=== PATIENT | male | born 1960 | race Caucasian/White ===

== ENCOUNTER 2019-10-01 16:21 | Emergency (ER) | payer OTHER ==
[~2019-10-01] VITALS: Ht 172.7 cm; Wt 77.3 kg
[~2019-10-01 16:21] MED LIST: ATOR10TA84 PO; LEVE750T4 PO
[2019-10-01] MEDS ORDERED: LEVE500T53 PO (16:34)
[2019-10-01] MEDS ORDERED: CITA10TA68 PO (16:34)
[2019-10-01] MEDS ORDERED: MEMA10TA11 PO (16:34)
[2019-10-01] MEDS ORDERED: ASPI-1182 PO (16:34)
[2019-10-01] MEDS ORDERED: DONE10TA8 PO (16:34)
[2019-10-01] MEDS ORDERED: RANI150T7 PO (16:34)
[2019-10-01] MEDS ORDERED: ATOR40TA28 PO (16:34)
[2019-10-01] MEDS ORDERED: BUSP15 PO (16:34)
[2019-10-01] MEDS ORDERED: PREG75 PO (16:34)
[2019-10-01] MEDS ORDERED: LACO100 PO (16:34)
[2019-10-01 18:09] LABS: BASOPHILS % (AUTO) 0.4 % (0.0-2.0); EOSINOPHILS % (AUTO) 2.7 % (1.0-6.0); HEMATOCRIT 42.6 % (41-53); HEMOGLOBIN 14.4 g/dL (13.5-17.5); LYMPHOCYTES # (AUTO) 1.4 K/uL (1.0-4.8); LYMPHOCYTES % (AUTO) 22.4 % (22.0-44.0); MEAN CORPUSCULAR HEMOGLOBIN 30.7 pg (26.0-34.0); MEAN CORPUSCULAR HGB CONC 33.8 G/dL (31.0-37.0); MEAN CORPUSCULAR VOLUME 91 fL (80-100); MONOCYTES # (AUTO) 0.4 K/uL (0.1-1.0); MONOCYTES % (AUTO) 5.9 % (2.0-9.0); NEUTROPHILS # (AUTO) 4.4 K/uL (1.8-7.7); NEUTROPHILS % (AUTO) 68.6 % (40.0-70.0); PLATELET COUNT (AUTO) 194 K/uL (150-450); RED BLOOD CELL COUNT(AUTO) 4.69 MIL/uL (4.50-5.90); RED CELL DISTRIBUTION WIDTH 14.1 % (11.5-14.5)
[2019-10-01 18:13] LABS: ANION GAP 10 mmol/L (8-16); CALCIUM, TOTAL 8.8 mg/dL (8.8-10.5); CARBON DIOXIDE 30 mmol/L (22-29); CHLORIDE 104 mmol/L (98-107); CREATININE 1.05 mg/dL (0.60-1.30); GLOMERULAR FILTR. RATE CALC > 60 mL/min (>60); GLUCOSE,RANDOM 114 mg/dL (70-110); POTASSIUM 3.7 mmol/L (3.5-5.1); SODIUM SERUM 144 mmol/L (136-145); UREA NITROGEN, BLOOD 18 mg/dL (7-18)
[2019-10-01 18:19] LABS: ALANINE AMINOTRANSFERASE 35 U/L (12-78); ALBUMIN 3.7 g/dL (3.4-5.0); ALKALINE PHOSPHATASE 66 U/L (46-116); ASPARTATE AMINOTRANSFERASE 23 U/L (15-37); BILIRUBIN,TOTAL 0.4 mg/dL (0.1-1.0); TOTAL PROTEIN, SERUM 6.9 g/dL (6.4-8.2)
[2019-10-01] MEDS ORDERED: SODIUM CHLORIDE 0.9% 100 ML ONE (18:32)
[2019-10-01] MEDS ORDERED: IOVERSOL 320 MG/ML 100 ML VIAL ONE (18:32)
[2019-10-01 19:17] VITALS: BP 135/59
== END 2019-10-01 19:43 | disposition home or self-care (01) ==
LOC: EMS 16:22
DX: K62.89 Other specified diseases of anus and rectum (principal); E78.00 Pure hypercholesterolemia, unspecified; F41.9 Anxiety disorder, unspecified; F03.90 Unspecified dementia, unspecified severity, without behavioral disturbance, psychotic disturbance, mood disturbance, and anxiety; Z98.890 Other specified postprocedural states; Z79.899 Other long term (current) drug therapy
CPT/HCPCS: 36415; 74177; 80053; 85025; 99284; J7050; Q9967

== ENCOUNTER 2021-07-29 17:45 | Inpatient (IN) | payer MEDICAID, OTHER ==
[~2021-07-29] VITALS: Ht 170.2 cm; Wt 68.4 kg
[~2021-07-29 17:45] MED LIST changes: +ASPI-1444 PO; -ATOR10TA84 PO; +ATOR40TA28 PO; +BUSP15 PO; +CITA10TA99 PO; +DONE10TA8 PO; +LACO100 PO; +LEVE500T53 PO; -LEVE750T4 PO; +MEMA10TA11 PO; +PREG75 PO; +RANI150T7 PO
[2021-07-29 18:40] LABS: BASOPHILS % (AUTO) 0.6 % (0.0-2.0); HEMATOCRIT 45.4 % (41-53); HEMOGLOBIN 15.2 g/dL (13.5-17.5); LYMPHOCYTES # (AUTO) 1.4 K/uL (1.0-4.8); LYMPHOCYTES % (AUTO) 18.6 % (22.0-44.0); MEAN CORPUSCULAR HEMOGLOBIN 30.5 pg (26.0-34.0); MEAN CORPUSCULAR HGB CONC 33.4 G/dL (31.0-37.0); MEAN CORPUSCULAR VOLUME 91 fL (80-100); MONOCYTES # (AUTO) 0.4 K/uL (0.1-1.0); MONOCYTES % (AUTO) 5.9 % (2.0-9.0); NEUTROPHILS # (AUTO) 5.5 K/uL (1.8-7.7); NEUTROPHILS % (AUTO) 73.9 % (40.0-70.0); PLATELET COUNT (AUTO) 240 K/uL (150-450); RED BLOOD CELL COUNT(AUTO) 4.97 MIL/uL (4.50-5.90); RED CELL DISTRIBUTION WIDTH 14.9 % (11.5-14.5)
[2021-07-29] MEDS ORDERED: LORazepam 2 MG/ML VIAL IM ONE (18:45)
[2021-07-29] MEDS ORDERED: HALOPERIDOL LACTATE 5 MG/ML VIAL IM ONE (18:45)
[2021-07-29] MEDS ORDERED: DiphenhydrAMINE HCL 50 MG/ML VIAL IM ONE (18:45)
[2021-07-29 18:49] LABS: ANION GAP 7 mmol/L (8-16); CALCIUM, TOTAL 8.6 mg/dL (8.8-10.5); CARBON DIOXIDE 29 mmol/L (22-29); CHLORIDE 107 mmol/L (98-107); CREATININE 1.04 mg/dL (0.60-1.30); GLOMERULAR FILTR. RATE CALC > 60 mL/min (>60); GLUCOSE,RANDOM 103 mg/dL (70-110); POTASSIUM 3.3 mmol/L (3.5-5.1); SODIUM SERUM 143 mmol/L (136-145); UREA NITROGEN, BLOOD 15 mg/dL (7-18)
[2021-07-29] MEDS ORDERED: QUET100T PO (18:52)
[2021-07-29] MEDS ORDERED: TRAZ-257 PO (18:53)
[2021-07-29 18:55] LABS: ALANINE AMINOTRANSFERASE 40 U/L (12-78); ALBUMIN 3.6 g/dL (3.4-5.0); ALKALINE PHOSPHATASE 83 U/L (46-116); ASPARTATE AMINOTRANSFERASE 27 U/L (15-37); BILIRUBIN,TOTAL 0.6 mg/dL (0.1-1.0); TOTAL PROTEIN, SERUM 7.1 g/dL (6.4-8.2)
[2021-07-29] MEDS ORDERED: POTASSIUM CHLORIDE 10% 40 MEQ/30 ML LIQUID UDCUP PO ONE (19:45)
[2021-07-29] MEDS ORDERED: POTASSIUM CHL 10 MEQ/WATER 50 ML IV PRN (20:15)
[2021-07-29 20:36] LABS: CREATINE KINASE, TOTAL ONLY 165 U/L (39-308); FREE T4 (FREE THYROXINE) 0.88 ng/dL (0.76-1.46); THYROID STIMULATING HORMONE 0.85 uIU/mL (0.36-3.74)
[2021-07-29 20:50] LABS: COVID AG,FIA SOURCE NASOPHARYNGEAL
[2021-07-29 22:31] LABS: APPEARANCE,URINE CLOUDY (CLEAR); BILIRUBIN,URINE NEGATIVE (NEGATIVE); GLUCOSE, URINE (UA) NEGATIVE (NEGATIVE); KETONES,URINE TRACE mg/dL (NEGATIVE); LEUKOCYTE ESTERASE ,URINE NEGATIVE (NEGATIVE); NITRATE,URINE NEGATIVE (NEGATIVE); OCCULT BLOOD,URINE NEGATIVE (NEGATIVE); PROTEIN,URINE POS 1+ (NEGATIVE)
[2021-07-29 22:37] LABS: AMPHET/METH SCREEN,URINE NEGATIVE (NEGATIVE); BARBITURATE SCREEN, URINE NEGATIVE (NEGATIVE); BENZODIAZEPINES SCREEN,URINE NEGATIVE (NEGATIVE); CANNABINOID SCREEN,URINE NEGATIVE (NEGATIVE); COCAINE SCREEN,URINE NEGATIVE (NEGATIVE); METHADONE SCREEN, URINE NEGATIVE (NEGATIVE); OPIATE SCREEN,URINE NEGATIVE (NEGATIVE)
[2021-07-29 22:40] LABS: PHENCYCLIDINE SCREEN,URINE NEGATIVE (NEGATIVE)
[2021-07-30] MEDS: MULTIVITAMINS WITH MINERALS, THERAPEUTIC TABLET PO SCH (12:14)
[2021-07-30 13:32] VITALS: BP 91/40
[2021-07-30] MEDS: QUEtiapine FUMARATE 25 MG TABLET PO SCH ×2 (14:33→22:18)
[2021-07-30] MEDS: CITALOPRAM HYDROBROMIDE 10 MG TABLET PO SCH (14:34)
[2021-07-30] MEDS: HEPARIN SODIUM,PORCINE 5,000 UNITS/ML VIAL SQ SCH ×2 (15:47→23:29)
[2021-07-30 16:22] VITALS: BP 162/76
[2021-07-30 16:47] VITALS: BP 118/62
[2021-07-30 20:00] VITALS: BP 136/90
[2021-07-30] MEDS: TraZODone HCL 100 MG TABLET PO SCH (20:43)
[2021-07-30] MEDS: POTASSIUM CHLORIDE 20 MEQ ER TABLET PO PRN (23:29)
[2021-07-30 23:30] VITALS: BP 105/74
[2021-07-31 04:06] VITALS: BP 108/79
[2021-07-31] MEDS: HALOPERIDOL LACTATE 5 MG/ML VIAL IM PRN (05:09)
[2021-07-31 08:06] VITALS: BP 144/77
[2021-07-31] MEDS: MULTIVITAMINS WITH MINERALS, THERAPEUTIC TABLET PO SCH (08:09)
[2021-07-31] MEDS: HEPARIN SODIUM,PORCINE 5,000 UNITS/ML VIAL SQ SCH ×3 (08:10→23:22)
[2021-07-31] MEDS: CITALOPRAM HYDROBROMIDE 10 MG TABLET PO SCH (08:10)
[2021-07-31] MEDS: QUEtiapine FUMARATE 25 MG TABLET PO SCH ×2 (08:10→20:20)
[2021-07-31 11:23] VITALS: BP 130/68
[2021-07-31 16:23] VITALS: BP 145/65
[2021-07-31 19:35] VITALS: BP 121/88
[2021-07-31] MEDS: TraZODone HCL 100 MG TABLET PO SCH (20:19)
[2021-08-01 00:15] VITALS: BP 107/86
[2021-08-01 05:10] VITALS: BP 128/98
[2021-08-01 07:13] VITALS: BP 124/88
[2021-08-01] MEDS: MULTIVITAMINS WITH MINERALS, THERAPEUTIC TABLET PO SCH (09:35)
[2021-08-01] MEDS: QUEtiapine FUMARATE 25 MG TABLET PO SCH ×2 (09:35→20:19)
[2021-08-01] MEDS: HEPARIN SODIUM,PORCINE 5,000 UNITS/ML VIAL SQ SCH ×3 (09:35→23:11)
[2021-08-01] MEDS: CITALOPRAM HYDROBROMIDE 10 MG TABLET PO SCH (09:35)
[2021-08-01 15:08] VITALS: BP 132/78
[2021-08-01] MEDS: HALOPERIDOL LACTATE 5 MG/ML VIAL IM PRN (17:43)
[2021-08-01 19:32] VITALS: BP 98/48
[2021-08-01] MEDS: TraZODone HCL 100 MG TABLET PO SCH (20:18)
[2021-08-02] VITALS: BP 137/68
[2021-08-02 03:59] VITALS: BP 116/57
[2021-08-02 08:01] VITALS: BP 130/72
[2021-08-02] MEDS: MULTIVITAMINS WITH MINERALS, THERAPEUTIC TABLET PO SCH (08:29)
[2021-08-02] MEDS: HEPARIN SODIUM,PORCINE 5,000 UNITS/ML VIAL SQ SCH ×3 (08:29→23:28)
[2021-08-02] MEDS: CITALOPRAM HYDROBROMIDE 10 MG TABLET PO SCH (08:29)
[2021-08-02] MEDS: QUEtiapine FUMARATE 25 MG TABLET PO SCH ×2 (08:30→19:45)
[2021-08-02 16:25] VITALS: BP 101/74
[2021-08-02] MEDS: HALOPERIDOL LACTATE 5 MG/ML VIAL IM PRN (18:50)
[2021-08-02] MEDS: TraZODone HCL 100 MG TABLET PO SCH (19:45)
[2021-08-02 20:45] VITALS: BP 116/55
[2021-08-03] MEDS ORDERED: HALOPERIDOL LACTATE 5 MG/ML VIAL IM ONE (00:15)
[2021-08-03 04:48] VITALS: BP 130/92
[2021-08-03] MEDS: QUEtiapine FUMARATE 25 MG TABLET PO SCH ×2 (08:56→20:47)
[2021-08-03] MEDS: HEPARIN SODIUM,PORCINE 5,000 UNITS/ML VIAL SQ SCH ×3 (08:56→22:44)
[2021-08-03] MEDS: MULTIVITAMINS WITH MINERALS, THERAPEUTIC TABLET PO SCH (08:56)
[2021-08-03] MEDS: CITALOPRAM HYDROBROMIDE 10 MG TABLET PO SCH (08:56)
[2021-08-03 09:00] VITALS: BP 122/76
[2021-08-03 11:00] VITALS: BP 116/81
[2021-08-03] MEDS: HALOPERIDOL LACTATE 5 MG/ML VIAL IM PRN (14:10)
[2021-08-03 16:08] VITALS: BP 120/82
[2021-08-03 19:30] VITALS: BP 126/80
[2021-08-03] MEDS: TraZODone HCL 100 MG TABLET PO SCH (20:46)
[2021-08-03 23:30] VITALS: BP 132/80
[2021-08-04 04:00] VITALS: BP 124/78
[2021-08-04 08:09] VITALS: BP 121/80
[2021-08-04] MEDS: QUEtiapine FUMARATE 25 MG TABLET PO SCH ×2 (08:12→20:15)
[2021-08-04] MEDS: HEPARIN SODIUM,PORCINE 5,000 UNITS/ML VIAL SQ SCH ×3 (08:12→23:26)
[2021-08-04] MEDS: CITALOPRAM HYDROBROMIDE 10 MG TABLET PO SCH (08:12)
[2021-08-04] MEDS: MULTIVITAMINS WITH MINERALS, THERAPEUTIC TABLET PO SCH (08:12)
[2021-08-04 13:42] LABS: ANION GAP 10 mmol/L (8-16); CALCIUM, TOTAL 8.7 mg/dL (8.8-10.5); CARBON DIOXIDE 28 mmol/L (22-29); CHLORIDE 103 mmol/L (98-107); CREATININE 0.78 mg/dL (0.60-1.30); GLOMERULAR FILTR. RATE CALC > 60 mL/min (>60); GLUCOSE,RANDOM 129 mg/dL (70-110); POTASSIUM 3.9 mmol/L (3.5-5.1); SODIUM SERUM 141 mmol/L (136-145); UREA NITROGEN, BLOOD 16 mg/dL (7-18)
[2021-08-04 13:48] LABS: ALANINE AMINOTRANSFERASE 52 U/L (12-78); ALKALINE PHOSPHATASE 84 U/L (46-116); ASPARTATE AMINOTRANSFERASE 46 U/L (15-37); BILIRUBIN,TOTAL 0.3 mg/dL (0.1-1.0); TOTAL PROTEIN, SERUM 7.3 g/dL (6.4-8.2)
[2021-08-04 16:29] VITALS: BP 140/73
[2021-08-04 20:03] VITALS: BP 102/74
[2021-08-04] MEDS: TraZODone HCL 100 MG TABLET PO SCH (20:15)
[2021-08-05] MEDS: HALOPERIDOL LACTATE 5 MG/ML VIAL IM PRN (03:53)
[2021-08-05 03:55] VITALS: BP 138/83
[2021-08-05 07:17] VITALS: BP 130/84
[2021-08-05] MEDS: MULTIVITAMINS WITH MINERALS, THERAPEUTIC TABLET PO SCH (08:05)
[2021-08-05] MEDS: CITALOPRAM HYDROBROMIDE 10 MG TABLET PO SCH (08:06)
[2021-08-05] MEDS: QUEtiapine FUMARATE 25 MG TABLET PO SCH ×2 (08:06→20:37)
[2021-08-05] MEDS: HEPARIN SODIUM,PORCINE 5,000 UNITS/ML VIAL SQ SCH ×3 (08:06→23:33)
[2021-08-05 08:13] LABS: BASOPHILS % (AUTO) 0.3 % (0.0-2.0); EOSINOPHILS % (AUTO) 0.7 % (1.0-6.0); HEMATOCRIT 47.4 % (41-53); HEMOGLOBIN 15.9 g/dL (13.5-17.5); LYMPHOCYTES # (AUTO) 0.7 K/uL (1.0-4.8); LYMPHOCYTES % (AUTO) 8.5 % (22.0-44.0); MEAN CORPUSCULAR HEMOGLOBIN 30.6 pg (26.0-34.0); MEAN CORPUSCULAR HGB CONC 33.5 G/dL (31.0-37.0); MEAN CORPUSCULAR VOLUME 91 fL (80-100); MONOCYTES # (AUTO) 0.6 K/uL (0.1-1.0); MONOCYTES % (AUTO) 6.9 % (2.0-9.0); NEUTROPHILS # (AUTO) 7.2 K/uL (1.8-7.7); NEUTROPHILS % (AUTO) 83.6 % (40.0-70.0); PLATELET COUNT (AUTO) 280 K/uL (150-450); RED BLOOD CELL COUNT(AUTO) 5.19 MIL/uL (4.50-5.90); RED CELL DISTRIBUTION WIDTH 15.1 % (11.5-14.5)
[2021-08-05 15:00] VITALS: BP 126/80
[2021-08-05 20:16] VITALS: BP 140/82
[2021-08-05] MEDS: TraZODone HCL 100 MG TABLET PO SCH (20:37)
[2021-08-06 04:56] VITALS: BP 121/75
[2021-08-06 06:35] LABS: BASOPHILS % (AUTO) 0.3 % (0.0-2.0); EOSINOPHILS % (AUTO) 0.7 % (1.0-6.0); HEMATOCRIT 45.9 % (41-53); HEMOGLOBIN 15.6 g/dL (13.5-17.5); LYMPHOCYTES % (AUTO) 10.7 % (22.0-44.0); MEAN CORPUSCULAR HEMOGLOBIN 30.7 pg (26.0-34.0); MEAN CORPUSCULAR HGB CONC 34.1 G/dL (31.0-37.0); MEAN CORPUSCULAR VOLUME 90 fL (80-100); MONOCYTES # (AUTO) 0.7 K/uL (0.1-1.0); NEUTROPHILS # (AUTO) 7.8 K/uL (1.8-7.7); NEUTROPHILS % (AUTO) 81.3 % (40.0-70.0); PLATELET COUNT (AUTO) 309 K/uL (150-450); RED BLOOD CELL COUNT(AUTO) 5.09 MIL/uL (4.50-5.90)
[2021-08-06 08:10] VITALS: BP 149/109
[2021-08-06 08:11] VITALS: BP 130/91
[2021-08-06] MEDS: CITALOPRAM HYDROBROMIDE 10 MG TABLET PO SCH (08:14)
[2021-08-06] MEDS: QUEtiapine FUMARATE 25 MG TABLET PO SCH ×2 (08:14→20:10)
[2021-08-06] MEDS: MULTIVITAMINS WITH MINERALS, THERAPEUTIC TABLET PO SCH (08:14)
[2021-08-06] MEDS: HEPARIN SODIUM,PORCINE 5,000 UNITS/ML VIAL SQ SCH ×3 (08:14→23:38)
[2021-08-06 16:45] VITALS: BP 139/96
[2021-08-06 16:46] VITALS: BP 144/88
[2021-08-06] MEDS: TraZODone HCL 100 MG TABLET PO SCH (20:10)
[2021-08-06 20:35] VITALS: BP 117/77
[2021-08-07 04:59] VITALS: BP 144/79
[2021-08-07 06:12] LABS: BASOPHILS % (AUTO) 0.5 % (0.0-2.0); EOSINOPHILS % (AUTO) 1.7 % (1.0-6.0); HEMATOCRIT 46.5 % (41-53); HEMOGLOBIN 15.7 g/dL (13.5-17.5); LYMPHOCYTES # (AUTO) 1.3 K/uL (1.0-4.8); LYMPHOCYTES % (AUTO) 12.2 % (22.0-44.0); MEAN CORPUSCULAR HEMOGLOBIN 30.7 pg (26.0-34.0); MEAN CORPUSCULAR HGB CONC 33.7 G/dL (31.0-37.0); MEAN CORPUSCULAR VOLUME 91 fL (80-100); MONOCYTES # (AUTO) 0.7 K/uL (0.1-1.0); MONOCYTES % (AUTO) 6.7 % (2.0-9.0); NEUTROPHILS # (AUTO) 8.6 K/uL (1.8-7.7); NEUTROPHILS % (AUTO) 78.9 % (40.0-70.0); PLATELET COUNT (AUTO) 283 K/uL (150-450); RED CELL DISTRIBUTION WIDTH 15.3 % (11.5-14.5)
[2021-08-07 07:44] VITALS: BP 147/75
[2021-08-07] MEDS: MULTIVITAMINS WITH MINERALS, THERAPEUTIC TABLET PO SCH (08:33)
[2021-08-07] MEDS: HEPARIN SODIUM,PORCINE 5,000 UNITS/ML VIAL SQ SCH ×2 (08:34→16:57)
[2021-08-07] MEDS: QUEtiapine FUMARATE 25 MG TABLET PO SCH ×2 (08:34→20:55)
[2021-08-07] MEDS: CITALOPRAM HYDROBROMIDE 10 MG TABLET PO SCH (08:34)
[2021-08-07 12:00] VITALS: BP 136/68
[2021-08-07] MEDS ORDERED: SODIUM CHLORIDE 0.9% 500 ML IV ONE (12:51)
[2021-08-07 16:09] VITALS: BP 134/68
[2021-08-07 20:30] VITALS: BP 125/91
[2021-08-07] MEDS: TraZODone HCL 100 MG TABLET PO SCH (20:55)
[2021-08-07 23:49] VITALS: BP 119/76
[2021-08-08] MEDS: HEPARIN SODIUM,PORCINE 5,000 UNITS/ML VIAL SQ SCH ×3 (00:59→15:33)
[2021-08-08 03:23] VITALS: BP 132/90
[2021-08-08] MEDS: HALOPERIDOL LACTATE 5 MG/ML VIAL IM PRN (03:39)
[2021-08-08 08:25] VITALS: BP 124/72
[2021-08-08] MEDS: CITALOPRAM HYDROBROMIDE 10 MG TABLET PO SCH (08:25)
[2021-08-08] MEDS: MULTIVITAMINS WITH MINERALS, THERAPEUTIC TABLET PO SCH (08:25)
[2021-08-08] MEDS: QUEtiapine FUMARATE 25 MG TABLET PO SCH ×2 (08:26→20:27)
[2021-08-08 15:33] VITALS: BP 123/69
[2021-08-08 19:42] VITALS: BP 118/85
[2021-08-08] MEDS: TraZODone HCL 100 MG TABLET PO SCH (20:27)
[2021-08-08 23:44] VITALS: BP 121/84
[2021-08-09] MEDS: HEPARIN SODIUM,PORCINE 5,000 UNITS/ML VIAL SQ SCH ×3 (00:27→15:26)
[2021-08-09 04:35] VITALS: BP 125/79
[2021-08-09 07:56] VITALS: BP 124/82
[2021-08-09] MEDS: MULTIVITAMINS WITH MINERALS, THERAPEUTIC TABLET PO SCH (08:13)
[2021-08-09] MEDS: QUEtiapine FUMARATE 25 MG TABLET PO SCH ×2 (08:13→20:25)
[2021-08-09] MEDS: CITALOPRAM HYDROBROMIDE 10 MG TABLET PO SCH (08:13)
[2021-08-09] MEDS: HALOPERIDOL LACTATE 5 MG/ML VIAL IM PRN (11:09)
[2021-08-09 11:16] VITALS: BP 122/86
[2021-08-09 15:07] VITALS: BP 118/84
[2021-08-09 19:37] VITALS: BP 141/94
[2021-08-09] MEDS: TraZODone HCL 100 MG TABLET PO SCH (20:25)
[2021-08-10] MEDS: HEPARIN SODIUM,PORCINE 5,000 UNITS/ML VIAL SQ SCH ×4 (00:35→23:32)
[2021-08-10 04:21] VITALS: BP 133/87
[2021-08-10 07:38] VITALS: BP 128/82
[2021-08-10] MEDS: QUEtiapine FUMARATE 25 MG TABLET PO SCH ×2 (08:22→20:06)
[2021-08-10] MEDS: CITALOPRAM HYDROBROMIDE 10 MG TABLET PO SCH (08:22)
[2021-08-10] MEDS: MULTIVITAMINS WITH MINERALS, THERAPEUTIC TABLET PO SCH (08:22)
[2021-08-10] MEDS: TraZODone HCL 100 MG TABLET PO SCH (20:06)
[2021-08-10 20:10] VITALS: BP 132/82
[2021-08-11 04:15] VITALS: BP 136/87
[2021-08-11] MEDS: MULTIVITAMINS WITH MINERALS, THERAPEUTIC TABLET PO SCH (07:51)
[2021-08-11] MEDS: CITALOPRAM HYDROBROMIDE 10 MG TABLET PO SCH (07:51)
[2021-08-11] MEDS: HEPARIN SODIUM,PORCINE 5,000 UNITS/ML VIAL SQ SCH ×3 (07:51→23:18)
[2021-08-11] MEDS: QUEtiapine FUMARATE 25 MG TABLET PO SCH ×2 (07:51→22:26)
[2021-08-11 08:13] VITALS: BP 146/60
[2021-08-11] MEDS: HALOPERIDOL LACTATE 5 MG/ML VIAL IM PRN (15:07)
[2021-08-11 17:00] VITALS: BP 146/80
[2021-08-11 20:00] VITALS: BP 139/72
[2021-08-11] MEDS: TraZODone HCL 100 MG TABLET PO SCH (22:26)
[2021-08-12 04:35] VITALS: BP 130/100
[2021-08-12 08:10] VITALS: BP 107/78
[2021-08-12] MEDS: CITALOPRAM HYDROBROMIDE 10 MG TABLET PO SCH (08:32)
[2021-08-12] MEDS: QUEtiapine FUMARATE 25 MG TABLET PO SCH ×2 (08:32→20:17)
[2021-08-12] MEDS: HEPARIN SODIUM,PORCINE 5,000 UNITS/ML VIAL SQ SCH ×3 (08:33→23:56)
[2021-08-12] MEDS: MULTIVITAMINS WITH MINERALS, THERAPEUTIC TABLET PO SCH (08:33)
[2021-08-12 16:14] VITALS: BP 136/78
[2021-08-12 19:30] VITALS: BP 134/80
[2021-08-12] MEDS: TraZODone HCL 100 MG TABLET PO SCH (20:16)
[2021-08-13 06:56] LABS: ANION GAP 9 mmol/L (8-16); CALCIUM, TOTAL 8.9 mg/dL (8.8-10.5); CARBON DIOXIDE 30 mmol/L (22-29); CHLORIDE 104 mmol/L (98-107); CREATININE 0.97 mg/dL (0.60-1.30); GLOMERULAR FILTR. RATE CALC > 60 mL/min (>60); GLUCOSE,RANDOM 114 mg/dL (70-110); POTASSIUM 3.6 mmol/L (3.5-5.1); SODIUM SERUM 143 mmol/L (136-145); UREA NITROGEN, BLOOD 30 mg/dL (7-18)
[2021-08-13 07:06] LABS: BASOPHILS % (AUTO) 0.4 % (0.0-2.0); EOSINOPHILS % (AUTO) 1.3 % (1.0-6.0); HEMATOCRIT 46.6 % (41-53); HEMOGLOBIN 15.9 g/dL (13.5-17.5); LYMPHOCYTES # (AUTO) 1.6 K/uL (1.0-4.8); LYMPHOCYTES % (AUTO) 13.6 % (22.0-44.0); MEAN CORPUSCULAR HEMOGLOBIN 30.9 pg (26.0-34.0); MEAN CORPUSCULAR HGB CONC 34.1 G/dL (31.0-37.0); MEAN CORPUSCULAR VOLUME 91 fL (80-100); MONOCYTES # (AUTO) 0.7 K/uL (0.1-1.0); MONOCYTES % (AUTO) 5.8 % (2.0-9.0); NEUTROPHILS # (AUTO) 9.3 K/uL (1.8-7.7); NEUTROPHILS % (AUTO) 78.9 % (40.0-70.0); PLATELET COUNT (AUTO) 351 K/uL (150-450); RED BLOOD CELL COUNT(AUTO) 5.15 MIL/uL (4.50-5.90); RED CELL DISTRIBUTION WIDTH 15.3 % (11.5-14.5)
[2021-08-13 07:20] VITALS: BP_SYST 117; BP_SYST 128; BP_DIAS 76
[2021-08-13] MEDS: CITALOPRAM HYDROBROMIDE 10 MG TABLET PO SCH (08:11)
[2021-08-13] MEDS: QUEtiapine FUMARATE 25 MG TABLET PO SCH ×2 (08:11→22:02)
[2021-08-13] MEDS: MULTIVITAMINS WITH MINERALS, THERAPEUTIC TABLET PO SCH (08:12)
[2021-08-13] MEDS: HEPARIN SODIUM,PORCINE 5,000 UNITS/ML VIAL SQ SCH ×3 (08:12→23:35)
[2021-08-13 15:07] VITALS: BP 124/68
[2021-08-13 19:54] VITALS: BP 151/64
[2021-08-13] MEDS: TraZODone HCL 100 MG TABLET PO SCH (22:01)
[2021-08-14 04:25] VITALS: BP 140/88
[2021-08-14 08:24] VITALS: BP 125/76
[2021-08-14] MEDS: HEPARIN SODIUM,PORCINE 5,000 UNITS/ML VIAL SQ SCH ×2 (08:28→16:33)
[2021-08-14] MEDS: CITALOPRAM HYDROBROMIDE 10 MG TABLET PO SCH (08:28)
[2021-08-14] MEDS: QUEtiapine FUMARATE 25 MG TABLET PO SCH ×2 (08:28→20:28)
[2021-08-14] MEDS: MULTIVITAMINS WITH MINERALS, THERAPEUTIC TABLET PO SCH (08:28)
[2021-08-14] MEDS: HALOPERIDOL LACTATE 5 MG/ML VIAL IM PRN (09:54)
[2021-08-14 16:02] VITALS: BP 129/77
[2021-08-14 19:30] VITALS: BP 121/94
[2021-08-14] MEDS: TraZODone HCL 100 MG TABLET PO SCH (20:28)
[2021-08-15] MEDS: HEPARIN SODIUM,PORCINE 5,000 UNITS/ML VIAL SQ SCH ×3 (00:07→17:05)
[2021-08-15 04:55] VITALS: BP 117/75
[2021-08-15] MEDS: MULTIVITAMINS WITH MINERALS, THERAPEUTIC TABLET PO SCH (08:04)
[2021-08-15] MEDS: QUEtiapine FUMARATE 25 MG TABLET PO SCH ×2 (08:04→20:03)
[2021-08-15] MEDS: CITALOPRAM HYDROBROMIDE 10 MG TABLET PO SCH (08:04)
[2021-08-15 15:02] VITALS: BP 126/84
[2021-08-15 19:18] VITALS: BP 149/82
[2021-08-15] MEDS: TraZODone HCL 100 MG TABLET PO SCH (20:02)
[2021-08-16] MEDS: HEPARIN SODIUM,PORCINE 5,000 UNITS/ML VIAL SQ SCH ×4 (00:14→23:29)
[2021-08-16 04:04] VITALS: BP 140/90
[2021-08-16 08:00] VITALS: BP 132/77
[2021-08-16] MEDS: MULTIVITAMINS WITH MINERALS, THERAPEUTIC TABLET PO SCH (08:52)
[2021-08-16] MEDS: QUEtiapine FUMARATE 25 MG TABLET PO SCH ×2 (08:53→20:08)
[2021-08-16] MEDS: CITALOPRAM HYDROBROMIDE 10 MG TABLET PO SCH (08:54)
[2021-08-16 15:44] VITALS: BP 136/64
[2021-08-16 19:37] VITALS: BP 102/74
[2021-08-16] MEDS: TraZODone HCL 100 MG TABLET PO SCH (20:09)
[2021-08-17 05:12] VITALS: BP 118/75
[2021-08-17 07:44] VITALS: BP 142/81
[2021-08-17] MEDS: CITALOPRAM HYDROBROMIDE 10 MG TABLET PO SCH (08:20)
[2021-08-17] MEDS: QUEtiapine FUMARATE 25 MG TABLET PO SCH ×2 (08:20→20:22)
[2021-08-17] MEDS: MULTIVITAMINS WITH MINERALS, THERAPEUTIC TABLET PO SCH (08:20)
[2021-08-17] MEDS: HEPARIN SODIUM,PORCINE 5,000 UNITS/ML VIAL SQ SCH ×2 (08:20→16:25)
[2021-08-17] MEDS: HALOPERIDOL LACTATE 5 MG/ML VIAL IM PRN (12:36)
[2021-08-17 15:52] VITALS: BP 103/73
[2021-08-17 19:25] VITALS: BP 137/83
[2021-08-17] MEDS: TraZODone HCL 100 MG TABLET PO SCH (20:22)
[2021-08-18] MEDS: HEPARIN SODIUM,PORCINE 5,000 UNITS/ML VIAL SQ SCH ×3 (00:13→16:22)
[2021-08-18 04:50] VITALS: BP 102/51
[2021-08-18] MEDS: MULTIVITAMINS WITH MINERALS, THERAPEUTIC TABLET PO SCH (08:01)
[2021-08-18] MEDS: QUEtiapine FUMARATE 25 MG TABLET PO SCH ×2 (08:01→20:20)
[2021-08-18] MEDS: CITALOPRAM HYDROBROMIDE 10 MG TABLET PO SCH (08:01)
[2021-08-18] MEDS: HALOPERIDOL LACTATE 5 MG/ML VIAL IM PRN ×2 (08:01→15:18)
[2021-08-18 10:30] VITALS: BP 106/61
[2021-08-18 15:01] VITALS: BP 107/69
[2021-08-18 19:51] VITALS: BP 135/83
[2021-08-18] MEDS: TraZODone HCL 100 MG TABLET PO SCH (20:20)
[2021-08-19] MEDS: HEPARIN SODIUM,PORCINE 5,000 UNITS/ML VIAL SQ SCH ×3 (00:13→17:01)
[2021-08-19 04:11] VITALS: BP 116/83
[2021-08-19] MEDS: HALOPERIDOL LACTATE 5 MG/ML VIAL IM PRN (04:56)
[2021-08-19] MEDS: QUEtiapine FUMARATE 25 MG TABLET PO SCH ×2 (07:58→22:58)
[2021-08-19] MEDS: CITALOPRAM HYDROBROMIDE 10 MG TABLET PO SCH (07:59)
[2021-08-19] MEDS: MULTIVITAMINS WITH MINERALS, THERAPEUTIC TABLET PO SCH (07:59)
[2021-08-19 08:25] VITALS: BP 122/84
[2021-08-19 15:00] VITALS: BP 128/78
[2021-08-19 19:30] VITALS: BP 90/60
[2021-08-19] MEDS: TraZODone HCL 100 MG TABLET PO SCH (22:58)
[2021-08-20] MEDS: HEPARIN SODIUM,PORCINE 5,000 UNITS/ML VIAL SQ SCH ×3 (00:45→16:22)
[2021-08-20 04:00] VITALS: BP 136/79
[2021-08-20 08:00] VITALS: BP 132/84
[2021-08-20 08:24] LABS: BASOPHILS % (AUTO) 0.3 % (0.0-2.0); EOSINOPHILS % (AUTO) 1.3 % (1.0-6.0); HEMATOCRIT 46.7 % (41-53); HEMOGLOBIN 15.6 g/dL (13.5-17.5); LYMPHOCYTES # (AUTO) 1.3 K/uL (1.0-4.8); LYMPHOCYTES % (AUTO) 13.5 % (22.0-44.0); MEAN CORPUSCULAR HEMOGLOBIN 30.9 pg (26.0-34.0); MEAN CORPUSCULAR HGB CONC 33.4 G/dL (31.0-37.0); MEAN CORPUSCULAR VOLUME 92 fL (80-100); MONOCYTES # (AUTO) 0.6 K/uL (0.1-1.0); MONOCYTES % (AUTO) 5.9 % (2.0-9.0); NEUTROPHILS # (AUTO) 7.8 K/uL (1.8-7.7); PLATELET COUNT (AUTO) 298 K/uL (150-450); RED BLOOD CELL COUNT(AUTO) 5.05 MIL/uL (4.50-5.90); RED CELL DISTRIBUTION WIDTH 14.9 % (11.5-14.5)
[2021-08-20] MEDS: CITALOPRAM HYDROBROMIDE 10 MG TABLET PO SCH (08:41)
[2021-08-20] MEDS: MULTIVITAMINS WITH MINERALS, THERAPEUTIC TABLET PO SCH (08:41)
[2021-08-20] MEDS: QUEtiapine FUMARATE 25 MG TABLET PO SCH ×2 (08:41→21:19)
[2021-08-20 09:29] LABS: ALANINE AMINOTRANSFERASE 103 U/L (12-78); ALBUMIN 3.2 g/dL (3.4-5.0); ALKALINE PHOSPHATASE 90 U/L (46-116); ANION GAP 3 mmol/L (8-16); ASPARTATE AMINOTRANSFERASE 59 U/L (15-37); BILIRUBIN,TOTAL 0.6 mg/dL (0.1-1.0); CARBON DIOXIDE 32 mmol/L (22-29); CHLORIDE 104 mmol/L (98-107); CREATININE 0.93 mg/dL (0.60-1.30); GLOMERULAR FILTR. RATE CALC > 60 mL/min (>60); GLUCOSE,RANDOM 96 mg/dL (70-110); POTASSIUM 3.4 mmol/L (3.5-5.1); SODIUM SERUM 139 mmol/L (136-145); TOTAL PROTEIN, SERUM 7.2 g/dL (6.4-8.2); UREA NITROGEN, BLOOD 18 mg/dL (7-18)
[2021-08-20] MEDS: POTASSIUM CHLORIDE 20 MEQ ER TABLET PO PRN (10:52)
[2021-08-20 15:59] VITALS: BP 124/68
[2021-08-20 19:16] VITALS: BP 106/71
[2021-08-20] MEDS: TraZODone HCL 100 MG TABLET PO SCH (21:17)
[2021-08-21] MEDS: HEPARIN SODIUM,PORCINE 5,000 UNITS/ML VIAL SQ SCH ×2 (01:02→08:53)
[2021-08-21 05:00] VITALS: BP 138/75
[2021-08-21 08:00] VITALS: BP 131/77
[2021-08-21] MEDS: MULTIVITAMINS WITH MINERALS, THERAPEUTIC TABLET PO SCH (08:53)
[2021-08-21] MEDS: CITALOPRAM HYDROBROMIDE 10 MG TABLET PO SCH (08:53)
[2021-08-21] MEDS: QUEtiapine FUMARATE 25 MG TABLET PO SCH (08:53)
[2021-08-21 11:49] LABS: COVID AG,FIA SOURCE NASAL SWAB
== END 2021-08-21 13:15 | DRG 421 ==
LOC: EMS 17:48 → 6N 07-30 08:18
PROVIDERS: ADMIT Internal Medicine; ATTEND Internal Medicine
DX: R62.7 Adult failure to thrive (principal); G92 Toxic encephalopathy; F03.91 Unspecified dementia, unspecified severity, with behavioral disturbance; F25.1 Schizoaffective disorder, depressive type; E78.00 Pure hypercholesterolemia, unspecified; Z91.5 Personal history of self-harm; F41.9 Anxiety disorder, unspecified; Z68.23 Body mass index [BMI] 23.0-23.9, adult; Z20.822 Contact with and (suspected) exposure to COVID-19; D72.829 Elevated white blood cell count, unspecified; Z78.1 Physical restraint status
CPT/HCPCS: 70450; 71045; 80048; 80053; 81003; 82550; 84132; 84439; 84443; 85025; 87081; 93005; 97162; 99291; G0480; J1200; J1630; J1644; J2060; J7040; 36415-L1; 36415-TC